=== PATIENT | female | born 1975 | race American Indian/Alaskan Native ===

== ENCOUNTER 2017-01-05 15:26 | Observation (INO) | payer MEDICAID ==
[2017-01-05 15:26] VITALS: BMI 26.9
[2017-01-05] MEDS ORDERED: Sodium Chloride 0.9% 1,000 ML IV ONE (15:54)
[2017-01-05 16:09] LABS: BASO # 0.1 K/uL (0.0-0.2); BASO % 1.4 % (0.0-2.0); EOS # 0.1 K/uL (0.0-0.7); EOS % 1.6 % (0.0-4.0); HEMATOCRIT 33.5 % (34.0-47.0); LYMPH # 1.3 K/uL (1.0-4.3); LYMPH % 22.8 % (20.0-40.0); MEAN CELL VOLUME 85.7 fL (81.0-99.0); MEAN CORPUSCULAR HEMOGLOBIN 28.4 pg (27.0-31.0); MEAN CORPUSCULAR HGB CONC 33.1 g/dL (33.0-37.0); MEAN PLATELET VOLUME 9.6 fL (7.2-11.7); MONO # 0.7 K/uL (0.0-0.8); MONO % 11.8 % (0.0-10.0); RED CELL DISTRIBUTION WIDTH 15.8 % (11.5-14.5); WHITE BLOOD COUNT 5.6 K/uL (4.8-10.8)
[2017-01-05 16:28] LABS: CHLORIDE 108 mmol/L (98-107); POTASSIUM 3.5 mmol/L (3.6-5.2); SODIUM 138 mmol/L (132-148)
[2017-01-05 16:30] LABS: GFR AFRICAN-AMERICAN > 60
[2017-01-05 16:31] LABS: ALB/GLOB RATIO 1.2 (1.0-2.1); ALKALINE PHOSPHATASE 45 U/L (38-126); ALT/SGPT 18 U/L (9-52); AST/SGOT 16 U/L (14-36); BILIRUBIN,TOTAL 1.1 mg/dL (0.2-1.3); BLOOD UREA NITROGEN 12 mg/dL (7-17); CALCIUM 8.8 mg/dl (8.6-10.4); CARBON DIOXIDE 22 mmol/L (22-30); GLUCOSE,RANDOM 84 mg/dL (65-105); TOTAL PROTEIN 6.8 g/dL (6.3-8.3)
[2017-01-05 16:47] LABS: RBC URINE 24 /hpf (0-3); URINE BACTERIA RARE (<OCC); URINE BILIRUBIN NEGATIVE (NEGATIVE); URINE BLOOD 3+ (NEGATIVE); URINE COLOR Straw (YELLOW); URINE GLUCOSE (UA) NORMAL (Normal); URINE KETONE TRACE mg/dL (NEGATIVE); URINE LEUKOCYTE ESTERASE 1+ Leu/uL (Negative); URINE PROTEIN NEGATIVE (NEGATIVE); URINE UROBILINOGEN NORMAL mg/dL (0.2-1.0); WBC URINE 30 /hpf (0-5)
--- NOTE | 2017-01-05 18:07 | CT ---
PROCEDURE: CT Abdomen and Pelvis without Oral or IV contrast. HISTORY: left flank pain COMPARISON: CT abdomen pelvis without oral or IV contrast performed 11/16/15 TECHNIQUE: Contiguous axial images of the abdomen and pelvis. No oral or IV contrast administered. Coronal and Sagittal reformats generated and reviewed. Radiation dose: Total exam DLP = 323.56 mGy-cm. This CT exam was performed using one or more of the following dose reduction techniques: Automated exposure control, adjustment of the mA and/or kV according to patient size, and/or use of iterative reconstruction technique. FINDINGS: There is limited evaluation of the solid organs without the administration of IV contrast. LOWER THORAX: Large cystic lesions re-identified within the anterior right lung base, likely reflecting large bulla. Minimal basilar atelectasis. No visible consolidation, pleural effusion, or pneumothorax. LIVER: Hepatomegaly. GALLBLADDER AND BILE DUCTS: Contracted gallbladder limits evaluation. Otherwise grossly unremarkable. PANCREAS: Unremarkable unenhanced appearance. SPLEEN: Unremarkable unenhanced appearance. ADRENALS: Unremarkable unenhanced appearance. KIDNEYS AND URETERS: Severe left-sided hydronephrosis. Left ureteral stent. No right-sided hydronephrosis or obstructing calculus identified. BLADDER: The urinary bladder appears unremarkable. REPRODUCTIVE: Uterus is present. Evidence of fundal fibroid. APPENDIX: Limited visualized portions of the presumed appendix appear within normal limits of caliber. No secondary signs of acute appendicitis. BOWEL: The stomach is nondistended. Lack of oral contrast limits evaluation for bowel pathology. The bowel loops appear within normal limits of caliber without evidence of intestinal obstruction. [id number]-[id number] constipation. PERITONEUM: No significant free fluid. No definite free air. LYMPH NODES: No bulky lymphadenopathy identified. VASCULATURE: No aortic aneurysm identified on this noncontrast study. BONES: 6 mm left sacral sclerotic focus, possibly bone island. No acute osseous abnormality is detected. OTHER FINDINGS: None. IMPRESSION: Severe left-sided hydronephrosis with ureteral stent present. Calculus is not evident. Probable uterine fundal fibroid. Hepatomegaly. Mild to moderate constipation. Additional incidental findings as above.
--- NOTE | 2017-01-05 18:13 | C.PDOC ---
History Of Present Illness A 41 y/o female c/o left flank pain for the past 2 days. Pt notes the pain is sharp in nature and is similar to the kidney stones she had in the past. Pt reports mild nausea and "dark" urine, but denies vomiting, fever, chills, dysuria, hematuria, incontinence, or any other complaints. Pt went to [facility] yesterday for similar complaint but did not receive a CAT scan. Pt reports her kidney stones in the past had to be surgically removed. Time Seen by Provider: 01/05/17 16:20 Chief Complaint (Nursing): Female Genitourinary History Per: Patient History/Exam Limitations: no limitations Onset/Duration Of Symptoms: Days Current Symptoms Are (Timing): Still Present Quality Of Discomfort: Sharp Severity: Mild Previous Symptoms: None Recent travel outside of the [place]: No Additional History Per: Patient Past Medical History Reviewed: Historical Data, Nursing Documentation, Vital Signs Vital Signs: Last Vital Signs Temp 98.4 F 01/06/17 08:18 Pulse 67 01/06/17 08:18 Resp 20 01/06/17 08:18 BP 117/68 01/06/17 08:18 Pulse Ox 100 01/06/17 08:18 Family History: States: Unknown Family Hx - Social History Hx Tobacco Use: No Hx Alcohol Use: Yes Hx Substance Use: No - Immunization History Hx Tetanus Toxoid Vaccination: No Hx Influenza Vaccination: No Hx Pneumococcal Vaccination: No Review Of Systems Except As Marked, All Systems Reviewed And Found Negative. Constitutional: Negative for: Fever, Chills Gastrointestinal: Positive for: Nausea. Negative for: Vomiting Genitourinary: Positive for: Other ("Dark urine". Left flank pain). Negative for: Dysuria, Incontinence, Hematuria Physical Exam - Physical Exam Appears: Non-toxic, No Acute Distress Skin: Warm, Dry Head: Atraumatic, Normacephalic Eye(s): bilateral: Normal Inspection Oral Mucosa: Moist Chest: Symmetrical Cardiovascular: Rhythm Regular, No Murmur Respiratory: Normal Breath Sounds, No Accessory Muscle Use, No Rales, No Rhonchi , No Wheezing Gastrointestinal/Abdominal: Soft, No Tenderness Back: CVA Tenderness (Left ), No Vertebral Tenderness, No Paraspinal Tenderness Neurological/Psych: Oriented x3, Normal Speech, Normal Cognition, Other (No focal deficit) Gait: Steady ED Course And Treatment - Laboratory Results Result Diagrams: 01/06/17 07:39 01/06/17 07:39 O2 Sat by Pulse Oximetry: 100 (RA) Pulse Ox Interpretation: Normal Medical Decision Making Medical Decision Making: Impression: A 41 y/o female c/o left flank pain for the past 2 days. Plans: Toradol IV fluids Urine culture Reassess Spoke to Dr. Mendez and pt will be admitted to his services. Spoke to Dr. Contreras who is material control manager for Urology, who is aware of the case. Disposition - Disposition Disposition: HOSPITALIZED Disposition Time: 18:20 Condition: STABLE - Clinical Impression Clinical Impression: Hydronephrosis - Scribe Statement The provider has reviewed the documentation as recorded by the Scribe Rosmery talbot All medical record entries made by the Scribe were at my direction and personally dictated by me. I have reviewed the chart and agree that the record accurately reflects my personal performance of the history, physical exam, medical decision making, and the department course for this patient. I have also personally directed, reviewed, and agree with the discharge instructions and disposition.
[2017-01-05] MEDS ORDERED: Ciprofloxacin 400mg/200ml D5W 400 MG/200 ML BAG IVPB STA (18:31)
[2017-01-05] MEDS ORDERED: Ciprofloxacin 400mg/200ml D5W 400 MG/200 ML BAG IVPB ONE (18:38)
[2017-01-05] MEDS: Sodium Chloride 0.9% 1,000 ML IV SCH ×2 (20:29)
[2017-01-05] MEDS ORDERED: Potassium Chloride 20 mEq ER Tab PO ONE (22:00)
--- NOTE | 2017-01-05 23:05 | CP.PCM.HP ---
History of Present Illness - History of Present Illness History of Present Illness: CC: left flank pain A 41 y/o AA female with h/o kidney stones and stent placement at [facility] [place] by a urologist 1 year ago since then she never followed up neither with urologist nor with ay medical doctor according to her she was doing well uptill now when she developed left flank pain for the past 2 days associated with nauea, vomitting, fevre, chills, anorexia, fatigue. Pt notes the pain is sharp in nature and is similar to the kidney stones she had in the past. Pt reports mild nausea and "dark" urine, but denies vomiting, fever, chills, dysuria, hematuria, incontinence, or any other complaints. Pt went to [facility] yesterday for similar complaint but did not receive a CAT scan. Pt reports her kidney stones in the past had to be surgically removed. Present on Admission - Present on Admission Any Indicators Present on Admission: Yes Review of Systems - Review of Systems Systems not reviewed;Unavailable: Acuity of Condition - Constitutional Constitutional: Fatigue, Lethargy, Weakness - EENT Eyes: absent: As Per HPI, Blind Spots, Blurred Vision, Change in Vision, Decreased Night Vision, Diplopia, Discharge, Dry Eye, Exophthalmos, Floaters, Irritation, Itchy Eyes, Loss of Peripheral Vision, Pain, Photophobia, Requires Corrective Lenses, Sees Flashes, Spots in Vision, Tunnel Vision, Other Visual Disturbances, Loss of Vision, Other Ears: absent: As Per HPI, Decreased Hearing, Ear Discharge, Ear Pain, Tinnitus, Abnormal Hearing, Disequilibrium, Dizziness, Other Nose/Mouth/Throat: absent: As Per HPI, Epistaxis, Nasal Congestion, Nasal Discharge, Nasal Obstruction, Nasal Trauma, Nose Pain, Post Nasal Drip, Sinus Pain, Sinus Pressure, Bleeding Gums, Change in Voice, Dental Pain, Dry Mouth, Dysphagia, Halitosis, Hoarsness, Lip Swelling, Mouth Lesions, Mouth Pain, Odynophagia, Sore Throat, Throat Swelling, Tongue Swelling, Facial Pain, Neck Pain, Neck Mass, Other - Cardiovascular Cardiovascular: absent: As Per HPI, Acrocyanosis, Chest Pain, Chest Pain at Rest , Chest Pain with Activity, Claudication, Diaphoresis, Dyspnea, Dyspnea on Exertion, Edema, Irregular Heart Rhythm, Pain Radiating to Arm/Neck/Jaw, Leg Edema, Leg Ulcers, Lightheadedness, Orthopnea, Palpitations, Paroxysmal Nocturnal Dyspnea, Pedal Edema, Radiating Pain, Rapid Heart Rate, Slow Heart Rate, Syncope, Other - Respiratory Respiratory: absent: As Per HPI, Cough, Dyspnea, Hemoptysis, Dyspnea on Exertion , Wheezing, Snoring, Stridor, Pain on Inspiration, Chest Congestion, Excessive Mucous Production, Change in Mucous Color, Pain with Coughing, Other - Gastrointestinal Gastrointestinal: Abdominal Pain - Genitourinary Genitourinary: Difficulty Urinating, Dysuria Past Patient History - Past Medical History & Family History Past Medical History?: No - Past Social History Smoking Status: Light Smoker < 10 Cigarettes Daily - CARDIAC Hx Cardiac Disorders: No - PULMONARY Hx Respiratory Disorders: No - NEUROLOGICAL Hx Neurological Disorder: No - HEENT Hx HEENT Problems: No - RENAL Other/Comment: "Blockage in L kidney" - ENDOCRINE/METABOLIC Hx Endocrine Disorders: No - HEMATOLOGICAL/ONCOLOGICAL Hx Blood Disorders: No - INTEGUMENTARY Hx Dermatological Problems: No - MUSCULOSKELETAL/RHEUMATOLOGICAL Hx Musculoskeletal Disorders: No Hx Falls: No - GASTROINTESTINAL Hx Gastrointestinal Disorders: No - GENITOURINARY/GYNECOLOGICAL Hx Genitourinary Disorders: No - PSYCHIATRIC Hx Psychophysiologic Disorder: No Hx Substance Use: No - SURGICAL HISTORY Other/Comment: L kidney stent 2016 - ANESTHESIA Hx Anesthesia: Yes Hx Anesthesia Reactions: No Meds Allergies/Adverse Reactions: Allergies Allergy/AdvReac Type Severity Reaction Status Date / Time No Known Allergies Allergy Verified 01/05/17 15:39 Physical Exam - Constitutional Appears: No Acute Distress - Eye Exam Eye Exam: EOMI, Normal appearance - Respiratory Exam Respiratory Exam: Clear to Auscultation Bilateral, NORMAL BREATHING PATTERN - Cardiovascular Exam Cardiovascular Exam: REGULAR RHYTHM - GI/Abdominal Exam GI & Abdominal Exam: Tenderness Additional comments: pt have left flank tenderness - Rectal Exam Rectal Exam: Deferred Results - Vital Signs Recent Vital Signs: Last Vital Signs Temp 98.2 F 01/05/17 20:10 Pulse 66 01/05/17 20:10 Resp 20 01/05/17 20:10 BP 127/76 01/05/17 20:10 Pulse Ox 99 01/05/17 20:10 - Labs Result Diagrams: 01/07/17 07:04 01/07/17 07:04 Assessment & Plan (1) Hydronephrosis Assessment and Plan: acute hydronephrosis dur to kidney stones Plans: Toradol IV fluids Urine culture Reassess possible ER tommorow Status: Acute (2) Musculoskeletal pain Status: Acute
[2017-01-06] MEDS: Sodium Chloride 0.9% 1,000 ML IV SCH ×3 (05:00→18:42)
[2017-01-06] MEDS: Ciprofloxacin 400mg/200ml D5W 400 MG/200 ML BAG IVPB SCH ×2 (06:10→18:42)
[2017-01-06 07:49] LABS: HEMATOCRIT 31.8 % (34.0-47.0); MEAN CELL VOLUME 85.1 fL (81.0-99.0); MEAN CORPUSCULAR HEMOGLOBIN 28.6 pg (27.0-31.0); MEAN CORPUSCULAR HGB CONC 33.6 g/dL (33.0-37.0); MEAN PLATELET VOLUME 9.8 fL (7.2-11.7); RED CELL DISTRIBUTION WIDTH 15.6 % (11.5-14.5); WHITE BLOOD COUNT 6.1 K/uL (4.8-10.8)
[2017-01-06 08:03] LABS: CHLORIDE 111 mmol/L (98-107); SODIUM 138 mmol/L (132-148)
[2017-01-06 08:06] LABS: BLOOD UREA NITROGEN 13 mg/dL (7-17); CALCIUM 8.5 mg/dl (8.6-10.4); CARBON DIOXIDE 21 mmol/L (22-30); GFR AFRICAN-AMERICAN > 60; GLUCOSE,RANDOM 91 mg/dL (65-105)
--- NOTE | 2017-01-06 23:14 | CP.PCM.PN ---
Subjective - Date & Time of Evaluation Date of Evaluation: 01/06/17 Time of Evaluation: 09:15 - Subjective Subjective: Pt seen and examined, still on pain managment waiting for urology consult Objective - Vital Signs/Intake and Output Vital Signs (last 24 hours): Temp Pulse Resp BP Pulse Ox 98.9 F 71 20 136/69 100 01/06/17 16:00 01/06/17 16:00 01/06/17 16:00 01/06/17 16:00 01/06/17 16:00 Intake and Output: 01/06/17 01/07/17 18:59 06:59 Intake Total 1100 1450 Balance 1100 1450 - Medications Medications: Current Medications Ciprofloxacin (Cipro 400mg/200ml Dsw) 400 mg in 200 mls @ 133 mls/hr IVPB Q12H YASH Last Admin: 01/06/17 18:42 Dose: 133 mls/hr Sodium Chloride (Sodium Chloride 0.9%) 1,000 mls @ 100 mls/hr IV .Q10H YASH Last Admin: 01/06/17 18:42 Dose: 100 mls/hr Ketorolac Tromethamine (Toradol) 30 mg IVP Q6 PRN PRN Reason: Pain, moderate (4-7) Last Admin: 01/06/17 08:54 Dose: 30 mg - Labs Labs: 01/06/17 07:39 01/06/17 07:39 - Constitutional Appears: No Acute Distress - Head Exam Head Exam: ATRAUMATIC, NORMAL INSPECTION, NORMOCEPHALIC - Eye Exam Eye Exam: EOMI, Normal appearance, PERRL Pupil Exam: NORMAL ACCOMODATION, PERRL - Respiratory Exam Respiratory Exam: Clear to Ausculation Bilateral, NORMAL BREATHING PATTERN - Cardiovascular Exam Cardiovascular Exam: REGULAR RHYTHM, +S1, +S2. absent: Murmur - GI/Abdominal Exam GI & Abdominal Exam: Tenderness, Normal Bowel Sounds - Rectal Exam Rectal Exam: Deferred - Neurological Exam Neurological Exam: Alert, Awake, CN II-XII Intact, Normal Gait, Oriented x3 - Psychiatric Exam Psychiatric exam: Anxious Assessment and Plan (1) Hydronephrosis Status: Acute (2) Musculoskeletal pain Status: Acute
[2017-01-07] MEDS: Sodium Chloride 0.9% 1,000 ML IV SCH (00:22)
[2017-01-07] MEDS: Ciprofloxacin 400mg/200ml D5W 400 MG/200 ML BAG IVPB SCH (06:17)
[2017-01-07 07:13] LABS: BASO # 0.1 K/uL (0.0-0.2); BASO % 1.1 % (0.0-2.0); EOS # 0.2 K/uL (0.0-0.7); EOS % 3.4 % (0.0-4.0); HEMATOCRIT 31.9 % (34.0-47.0); LYMPH # 1.3 K/uL (1.0-4.3); LYMPH % 23.3 % (20.0-40.0); MEAN CELL VOLUME 85.4 fL (81.0-99.0); MEAN CORPUSCULAR HEMOGLOBIN 28.7 pg (27.0-31.0); MEAN CORPUSCULAR HGB CONC 33.6 g/dL (33.0-37.0); MONO # 0.8 K/uL (0.0-0.8); MONO % 14.4 % (0.0-10.0); NRBC % 0.1 % (0.0-2.0); RED CELL DISTRIBUTION WIDTH 15.8 % (11.5-14.5); WHITE BLOOD COUNT 5.7 K/uL (4.8-10.8)
[2017-01-07 07:29] LABS: CHLORIDE 112 mmol/L (98-107); POTASSIUM 3.8 mmol/L (3.6-5.2); SODIUM 137 mmol/L (132-148)
[2017-01-07 07:32] LABS: BLOOD UREA NITROGEN 9 mg/dL (7-17); CARBON DIOXIDE 21 mmol/L (22-30); GFR AFRICAN-AMERICAN > 60
[2017-01-07 07:33] LABS: CALCIUM 8.4 mg/dl (8.6-10.4); GLUCOSE,RANDOM 92 mg/dL (65-105)
[2017-01-07 08:32] LABS: INR 1.1
[2017-01-07] MEDS ORDERED: Midazolam 2 MG/2 ML VIAL ONE (09:55)
[2017-01-07] MEDS ORDERED: Propofol 10 mg/ml Inj (20 ML) ONE ×2 (09:55→10:29)
[2017-01-07] MEDS ORDERED: Lactated Ringer's 1,000 ML IV ONE (10:00)
[2017-01-07] MEDS ORDERED: HYDROmorphone 0.5 mg/0.5 ml ISec IVP PRN (11:00)
[2017-01-07 11:13] VITALS: O2SAT 100
--- NOTE | 2017-01-07 12:03 | RAD ---
Abdomen single frontal view History: Left-sided hydroureteronephrosis. Comparison: CT scan dated 01/05/2017 Findings: Left nephroureteral stent in place. Rounded radiopaque calcification within the right hemipelvis. Degenerative changes in the spine. Moderate fecal retention in the colon. Impression: Left nephroureteral stent in place.
--- NOTE | 2017-01-07 12:07 | RAD ---
PROCEDURE: Intraoperative Fluoroscopy. HISTORY: Left hydronephrosis FINDINGS: Fluoroscopic assistance was provided for left nephroureteral stent manipulation. Please refer to the operative report from
[2017-01-07 12:25] VITALS: RESP 20
--- NOTE | 2017-01-07 16:52 | CP.PCM.PN ---
Subjective - Date & Time of Evaluation Date of Evaluation: 01/07/17 Objective - Vital Signs/Intake and Output Vital Signs (last 24 hours): Temp Pulse Resp BP Pulse Ox 99 F 72 20 122/59 L 100 01/07/17 12:00 01/07/17 12:00 01/07/17 12:00 01/07/17 12:00 01/07/17 12:00 Intake and Output: 01/07/17 01/07/17 06:59 18:59 Intake Total 2250 Output Total 150 Balance 2250 -150 - Medications Medications: Current Medications Ciprofloxacin (Cipro 400mg/200ml Dsw) 400 mg in 200 mls @ 133 mls/hr IVPB Q12H YASH Last Admin: 01/07/17 06:17 Dose: 133 mls/hr Sodium Chloride (Sodium Chloride 0.9%) 1,000 mls @ 100 mls/hr IV .Q10H YASH Last Admin: 01/07/17 00:22 Dose: Not Given Ketorolac Tromethamine (Toradol) 30 mg IVP Q6 PRN PRN Reason: Pain, moderate (4-7) Last Admin: 01/06/17 08:54 Dose: 30 mg - Labs Labs: 01/07/17 07:04 01/07/17 07:04 PT 12.5 SECONDS (9.7-12.2) H 01/07/17 08:04 INR 1.1 01/07/17 08:04 APTT 29 SECONDS (21-34) 01/07/17 08:04 Assessment and Plan (1) Hydronephrosis Status: Acute (2) Musculoskeletal pain Status: Acute
[2017-01-07 17:13] VITALS: BP 113/72; PULSE 61; TEMP 98.7
--- NOTE | 2017-01-07 17:45 | CP.PCM.PN ---
Subjective - Date & Time of Evaluation Date of Evaluation: 01/07/17 Time of Evaluation: 14:00 - Subjective Subjective: Pt seen an dexamined today states feel s better, flank an dabdominal pain improved , denies any N/V/D, dysuria , hematuria s/p cystocscopy with ureter stent left removal a febrile Objective - Vital Signs/Intake and Output Vital Signs (last 24 hours): Temp Pulse Resp BP Pulse Ox 98.7 F 61 20 113/72 100 01/07/17 16:00 01/07/17 16:00 01/07/17 16:00 01/07/17 16:00 01/07/17 16:00 Intake and Output: 01/07/17 01/07/17 06:59 18:59 Intake Total 2250 Output Total 150 Balance 2250 -150 - Medications Medications: Current Medications Ciprofloxacin (Cipro 400mg/200ml Dsw) 400 mg in 200 mls @ 133 mls/hr IVPB Q12H YASH Last Admin: 01/07/17 06:17 Dose: 133 mls/hr Sodium Chloride (Sodium Chloride 0.9%) 1,000 mls @ 100 mls/hr IV .Q10H YASH Last Admin: 01/07/17 00:22 Dose: Not Given Ketorolac Tromethamine (Toradol) 30 mg IVP Q6 PRN PRN Reason: Pain, moderate (4-7) Last Admin: 01/06/17 08:54 Dose: 30 mg - Labs Labs: 01/07/17 07:04 01/07/17 07:04 PT 12.5 SECONDS (9.7-12.2) H 01/07/17 08:04 INR 1.1 01/07/17 08:04 APTT 29 SECONDS (21-34) 01/07/17 08:04 Assessment and Plan - Assessment and Plan (Free Text) Assessment: A/P 41 YR old female admitted fo r hydronephrosi s s/p cystoscopy with removal of left ureter stent urine culture- yeast D/w Dr. Contreras , stable for discharge home otday and f/u with Dr. Contreras office in 1-2 weeks D/w Dr. Mendez, stable for discharge home today and continue cipr and diflucan and f/u with Dr. Mendez office in 1 week Discharge plan discussed with patient who under stands and agree with plan Pt instructed to returns to ED or call Dr. Mendez if symptoms returns or any concerning symptoms
--- NOTE | 2017-01-08 05:31 | CP.PCM.DIS ---
Provider - Provider Date of Admission: 01/05/17 18:30 Attending physician: Jostin Mendez MD Time Spent in preparation of Discharge (in minutes): 30 Diagnosis - Discharge Diagnosis (1) Hydronephrosis Status: Acute (2) Musculoskeletal pain Status: Acute Hospital Course - Lab Results Lab Results: Most Recent Lab Values WBC 5.7 K/uL (4.8-10.8) 01/07/17 07:04 RBC 3.74 Mil/uL (3.80-5.20) L 01/07/17 07:04 Hgb 10.7 g/dL (11.0-16.0) L 01/07/17 07:04 Hct 31.9 % (34.0-47.0) L 01/07/17 07:04 MCV 85.4 fL (81.0-99.0) 01/07/17 07:04 MCH 28.7 pg (27.0-31.0) 01/07/17 07:04 MCHC 33.6 g/dL (33.0-37.0) 01/07/17 07:04 RDW 15.8 % (11.5-14.5) H 01/07/17 07:04 Plt Count 210 K/uL (130-400) 01/07/17 07:04 MPV 10.0 fL (7.2-11.7) 01/07/17 07:04 Neut % (Auto) 57.8 % (50.0-75.0) 01/07/17 07:04 Lymph % (Auto) 23.3 % (20.0-40.0) 01/07/17 07:04 Dare % (Auto) 14.4 % (0.0-10.0) H 01/07/17 07:04 Eos % (Auto) 3.4 % (0.0-4.0) 01/07/17 07:04 Baso % (Auto) 1.1 % (0.0-2.0) 01/07/17 07:04 Neut # 3.3 K/uL (1.8-7.0) 01/07/17 07:04 Lymph # 1.3 K/uL (1.0-4.3) 01/07/17 07:04 Dare # 0.8 K/uL (0.0-0.8) 01/07/17 07:04 Eos # 0.2 K/uL (0.0-0.7) 01/07/17 07:04 Baso # 0.1 K/uL (0.0-0.2) 01/07/17 07:04 PT 12.5 SECONDS (9.7-12.2) H 01/07/17 08:04 INR 1.1 01/07/17 08:04 APTT 29 SECONDS (21-34) 01/07/17 08:04 Sodium 137 mmol/L (132-148) 01/07/17 07:04 Potassium 3.8 mmol/L (3.6-5.2) 01/07/17 07:04 Chloride 112 mmol/L (98-107) H 01/07/17 07:04 Carbon Dioxide 21 mmol/L (22-30) L 01/07/17 07:04 Anion Gap 8 (10-20) L 01/07/17 07:04 BUN 9 mg/dL (7-17) 01/07/17 07:04 Creatinine 0.7 MG/DL (0.7-1.2) 01/07/17 07:04 Est GFR ( Amer) > 60 01/07/17 07:04 Est GFR (Non-Af Amer) > 60 01/07/17 07:04 Random Glucose 92 mg/dL (65-105) 01/07/17 07:04 Calcium 8.4 mg/dl (8.6-10.4) L 01/07/17 07:04 Total Bilirubin 1.1 mg/dL (0.2-1.3) 01/05/17 16:04 AST 16 U/L (14-36) 01/05/17 16:04 ALT 18 U/L (9-52) 01/05/17 16:04 Alkaline Phosphatase 45 U/L (38-126) 01/05/17 16:04 Total Protein 6.8 g/dL (6.3-8.3) 01/05/17 16:04 Albumin 3.7 g/dL (3.5-5.0) 01/05/17 16:04 Globulin 3.1 gm/dL (2.2-3.9) 01/05/17 16:04 Albumin/Globulin Ratio 1.2 (1.0-2.1) 01/05/17 16:04 Lipase 202 U/L (23-300) 01/05/17 16:04 Urine Color Straw (YELLOW) 01/05/17 16:04 Urine Clarity Clear (Clear) 01/05/17 16:04 Urine pH 6.0 (5.0-8.0) 01/05/17 16:04 Ur Specific [place] 1.004 (1.003-1.030) 01/05/17 16:04 Urine Protein Negative mg/dL (NEGATIVE) 01/05/17 16:04 Urine Glucose (UA) Normal mg/dL (Normal) 01/05/17 16:04 Urine Ketones Trace mg/dL (NEGATIVE) 01/05/17 16:04 Urine Blood 3+ (NEGATIVE) H 01/05/17 16:04 Urine Nitrate Negative (NEGATIVE) 01/05/17 16:04 Urine Bilirubin Negative (NEGATIVE) 01/05/17 16:04 Urine Urobilinogen Normal mg/dL (0.2-1.0) 01/05/17 16:04 Ur Leukocyte Esterase 1+ Chris/uL (Negative) H 01/05/17 16:04 Urine WBC (Auto) 30 /hpf (0-5) H 01/05/17 16:04 Urine RBC (Auto) 24 /hpf (0-3) H 01/05/17 16:04 Ur Squamous Epith Cells 6 /hpf (0-5) H 01/05/17 16:04 Urine Bacteria Rare (<OCC) 01/05/17 16:04 Urine HCG, Qual Negative (NEGATIVE) 01/07/17 08:07 - Hospital Course Hospital Course: Pt seen an dexamined today states feel s better, flank an dabdominal pain improved , denies any N/V/D, dysuria , hematuria s/p cystocscopy with ureter stent left removal a febrile Discharge Exam - Head Exam Head Exam: ATRAUMATIC, NORMAL INSPECTION, NORMOCEPHALIC - Eye Exam Eye Exam: EOMI, Normal appearance, PERRL Pupil Exam: NORMAL ACCOMODATION, PERRL - Respiratory Exam Respiratory Exam: Clear to PA & Lateral, NORMAL BREATHING PATTERN - Cardiovascular Exam Cardiovascular Exam: REGULAR RHYTHM, +S1, +S2 - GI/Abdominal Exam GI & Abdominal Exam: Normal Bowel Sounds Discharge Plan - Discharge Medications Prescriptions: Ciprofloxacin HCl [Cipro] 500 mg PO BID #14 tablet Fluconazole [Diflucan] 100 mg PO DAILY #5 tab - Follow Up Plan Condition: STABLE Disposition: HOME/ ROUTINE Instructions: Ciprofloxacin (By mouth), Fluconazole (By mouth), Hydronephrosis (DC) Additional Instructions: f/u with Dr. mendez office in 1 week F/u with Dr. Vaughn office in 1-2 weeks - call for appointment Continue medication as per Med. rec. Referrals: Jostin Mendez MD [Staff Provider] - Dhiraj Vaughn MD [Staff Provider] -
--- NOTE | 2017-01-08 14:35 | OP ---
PROCEDURE DATE: 01/07/2017 PREOPERATIVE DIAGNOSIS: The patient had stent inserted 1 year ago. ____ at this time is unknown. H owever, the stent ____. The patient was admitted for the stent removal. DETAILS OF PROCEDURE: The patient was brought to the OR, prepped and draped in the usual manner. A #21 cystourethroscope was inserted into the bladder. There was a lot of encrustation of the loop of the distal coil of the stent. Using foreign body forceps, the encrustation was removed. Attempted r emoving the stent then failed because of encrustation of the proximal coil of the stent in the left p remi. A ureteroscope was then inserted a long side the stent into the pelvis and the areas of encru station on the loop were noted and lasered. When this was accomplished, the stent was then easily re moved. The patient tolerated procedure well, left in good condition. Fahad Contreras MD cc: [id number] TT: 01/08/2017 14:34:13 tn
== END 2017-01-07 18:20 | disposition home or self-care (01) ==
LOC: C.ER 15:26 → C.9E 18:30 → C.3T 18:47
PROVIDERS: ADMIT Internal Medicine; ATTEND Internal Medicine
DX: N13.2 Hydronephrosis with renal and ureteral calculous obstruction (principal); Z87.442 Personal history of urinary calculi
CPT/HCPCS: 36415; 52310; 74000; 74176; 76000; 80048; 80053; 81001; 83690; 84703; 85025; 85027; 85610; 85730; 87086; 96374; 99285; G0378; J0744; J1885; J7040; J7120

== ENCOUNTER 2017-03-01 07:55 | Day surgery (SDC) | payer MEDICAID ==
[2017-02-24 09:03] VITALS: BMI 24.9
[2017-03-01] MEDS ORDERED: Ciprofloxacin 400mg/200ml D5W 400 MG/200 ML BAG IVPB ONE (08:37)
[2017-03-01] MEDS ORDERED: Propofol 10 mg/ml Inj (20 ML) ONE (08:51)
[2017-03-01] MEDS ORDERED: Midazolam 2 MG/2 ML VIAL ONE (08:51)
[2017-03-01] MEDS ORDERED: Lactated Ringer's 1,000 ML IV ONE (08:51)
[2017-03-01] MEDS: Gentamicin 160 MG in Sodium Chloride 0.9% 100 ML IVPB ONE ×2 (08:54→09:05)
--- NOTE | 2017-03-01 09:19 | PCM.SURG1 ---
Surgeon's Initial Post Op Note - Surgeon's Notes Surgeon: [employer] Salesperson: BLAINE Type of Anesthesia: General Mask Anesthesia Administered By: staff Pre-Operative Diagnosis: Left upj obs Operative Findings: NO evidence of sig obs/or stent Post-Operative Diagnosis: some Operation Performed: Cysto bilat retrograde Specimen/Specimens Removed: na Estimated Blood Loss: EBL {In ML}: 0 Blood Products Given: N/A Drains Used: No Drains, Chest Tubes Post-Op Condition: Good Date of Surgery/Procedure: 03/01/17 Time of Surgery/Procedure: 09:18
[2017-03-01] MEDS ORDERED: Lidocaine 2% Jelly (Uro-Jet) ONE (09:40)
[2017-03-01 09:44] VITALS: O2SAT 100
[2017-03-01 10:39] VITALS: RESP 16
[2017-03-01 11:00] VITALS: BP 113/85; PULSE 59; TEMP 97.5
--- NOTE | 2017-03-01 16:56 | RAD ---
PROCEDURE: Intraoperative Fluoroscopy. HISTORY: UNSPECIFIED BILAT. HYDRONEPHROSIS FINDINGS: Fluoroscopic assistance was provided for bilateral retrograde. Please fluoroscopic time (continuous mode) utilized during the procedure: 36.9 seconds.
--- NOTE | 2017-03-01 19:46 | OP ---
PROCEDURE DATE: 03/01/2017 PREOPERATIVE DIAGNOSES: Left ureteropelvic junction obstruction, status post dismembered pyeloplasty, possible retained stent. POSTOPERATIVE DIAGNOSIS: No evidence of retained stent and no evidence of significant hydronephrosis. PROCEDURE: Cystoscopy and bilateral retrograde. DESCRIPTION OF THE PROCEDURE: As follows, prior to the procedure, a detailed informed consent was obtained from the patient. She is aware of the risks and complications of this procedure. She was given prophylactic antibiotics, gentamicin and Cipro after it was confirmed that she had had a tubal ligation. She was draped and prepped in the usual manner. KUB was taken which showed no evidence of stent. The patient was cystoscoped with #21 ____ scope and double bilateral retrograde pyelograms were performed. There was evidence of still a rather box pelvis, but it seemed to drain on the left, but it seemed to drain properly. The right kidney appeared normal. Based on these findings, it appears that the patient has improved hydronephrosis since dismembered pyeloplasty. We suggest observation with repeat studies in approximately 6 months to determine if there is renal deterioration. Shon Cassidy MD
--- NOTE | 2017-03-02 17:23 | RAD ---
HISTORY: UNSPECIFIED BILAT HYDRONEPHROSIS COMPARISON: No prior. FINDINGS: BOWEL: Constipation without fecal impaction or obstruction. BONES: Normal. OTHER FINDINGS: Distended collecting systems bilaterally left greater than right. Contrast fills the urinary bladder. Removal of support apparatus since the prior study: Left double-J stent catheter. IMPRESSION: Distended collecting systems bilaterally. Nonvisualization of portions of the proximal ureter.
== END 2017-03-01 10:57 | disposition home or self-care (01) ==
LOC: C.SDS 07:55
PROVIDERS: ATTEND Urology
DX: N13.1 Hydronephrosis with ureteral stricture, not elsewhere classified (principal)
CPT/HCPCS: 52000; 74022; 76000; J0744; J1580; J7120

== ENCOUNTER 2017-03-15 15:27 | Emergency (ER) | payer MEDICAID ==
[2017-03-15 15:28] VITALS: BMI 24.9
[2017-03-15 15:37] VITALS: RESP 18; O2SAT 100
[2017-03-15 15:56] LABS: URINE BILIRUBIN NEGATIVE (NEGATIVE); URINE BLOOD NEGATIVE (NEGATIVE); URINE COLOR Straw (YELLOW); URINE GLUCOSE (UA) NORMAL (Normal); URINE KETONE NEGATIVE (NEGATIVE); URINE LEUKOCYTE ESTERASE NEG Leu/uL (Negative); URINE PROTEIN NEGATIVE (NEGATIVE); URINE UROBILINOGEN NORMAL mg/dL (0.2-1.0); WBC URINE < 1 /hpf (0-5)
[2017-03-15 16:32] LABS: BASO # 0.1 K/uL (0.0-0.2); EOS # 0.1 K/uL (0.0-0.7); EOS % 1.7 % (0.0-4.0); HEMATOCRIT 35.1 % (34.0-47.0); LYMPH # 1.9 K/uL (1.0-4.3); LYMPH % 23.6 % (20.0-40.0); MEAN CELL VOLUME 85.5 fL (81.0-99.0); MEAN CORPUSCULAR HEMOGLOBIN 28.7 pg (27.0-31.0); MEAN CORPUSCULAR HGB CONC 33.6 g/dL (33.0-37.0); MEAN PLATELET VOLUME 9.2 fL (7.2-11.7); MONO # 0.5 K/uL (0.0-0.8); MONO % 6.8 % (0.0-10.0); RED CELL DISTRIBUTION WIDTH 16.5 % (11.5-14.5); WHITE BLOOD COUNT 7.9 K/uL (4.8-10.8)
--- NOTE | 2017-03-15 16:45 | C.PDOC ---
History Of Present Illness 41 y/o female presents to ED for evaluation of tingling sensation to posterior aspect of left shoulder, and upper back for the past week. Also complains of "muscle tightness" to left thigh, arms, and tightness across her abdomen. Otherwise, denies any recent heavy exercise, fever, chills, abdominal pain, n/v/ d, urinary symptoms, or any other associated symptoms at this time. Time Seen by Provider: 03/15/17 15:56 Chief Complaint (Nursing): Pain, Chronic History Per: Patient History/Exam Limitations: no limitations Onset/Duration Of Symptoms: Days (1 week) Current Symptoms Are (Timing): Still Present Recent travel outside of the [place]: No Additional History Per: Patient Past Medical History Reviewed: Historical Data, Nursing Documentation, Vital Signs Vital Signs: Last Vital Signs Temp 98.0 F 03/15/17 15:33 Pulse 66 03/15/17 15:33 Resp 18 03/15/17 15:33 BP 118/72 03/15/17 15:33 Pulse Ox 100 03/15/17 17:13 - Medical History PMH: Kidney Stones Family History: States: Unknown Family Hx - Social History Hx Tobacco Use: No Hx Alcohol Use: Yes - Immunization History Hx Tetanus Toxoid Vaccination: No Hx Influenza Vaccination: No Hx Pneumococcal Vaccination: No Review Of Systems Constitutional: Negative for: Fever, Chills Cardiovascular: Negative for: Chest Pain, Palpitations Respiratory: Negative for: Shortness of Breath Gastrointestinal: Negative for: Nausea, Vomiting, Abdominal Pain Genitourinary: Negative for: Dysuria, Frequency, Hematuria Musculoskeletal: Positive for: Other ("muscle tightness" to arms, left thigh, and across abdomen). Negative for: Neck Pain, Shoulder Pain Neurological: Positive for: Other (tingling sensation to left shoulder and upper back). Negative for: Weakness, Numbness, Headache, Dizziness Physical Exam - Physical Exam Appears: Well, Non-toxic, No Acute Distress Skin: Normal Color, Warm, Dry, No Rash Head: Atraumatic, Normacephalic Eye(s): bilateral: Normal Inspection Oral Mucosa: Moist Neck: Normal ROM, No Midline Cervical Tenderness, No Paracervical Tenderness ( no trapezius muscle tenderness), Supple Cardiovascular: Rhythm Regular, No Murmur Respiratory: Normal Breath Sounds, No Rales, No Rhonchi, No Wheezing Gastrointestinal/Abdominal: Normal Exam, Bowel Sounds, Soft, No Tenderness, No Guarding, No Rebound Back: Normal Inspection, No Vertebral Tenderness, No Decreased ROM, No Muscle Spasm, No Paraspinal Tenderness Extremity: Normal ROM, No Tenderness (no tenderness to bilateral legs or thighs. No tenderness to shoulders or arms. ), Capillary Refill (<2 sec.), No Deformity, No Swelling Extremity: Bilateral: Atraumatic, Normal Color And Temperature, Normal ROM Pulses: Left Femoral: Normal, Right Femoral: Normal Neurological/Psych: Oriented x3, Normal Speech, Normal Cognition, Normal Motor, Normal Sensation ED Course And Treatment - Laboratory Results Result Diagrams: 03/15/17 16:30 03/15/17 16:30 O2 Sat by Pulse Oximetry: 100 Medical Decision Making Medical Decision Making: Plan: Blood work, UA, urine culture Patient was given Toradol. Symptoms likely early flu myalgia vs rhabdomyolysis? urine clear and light color, unlikely. 530 pm pt reprts feeloing better, will d/c with flexeril and pt can follow up tomorrow with Dr Mendez as planned. Disposition Counseled Patient/Family Regarding: Diagnosis, Need For Followup, Rx Given - Disposition Referrals: Jostin Mendez MD [Staff Provider] - Disposition: HOME/ ROUTINE Disposition Time: 17:35 Condition: IMPROVED Additional Instructions: Take muscle relaxant if your muscles feel stiff- makes you feel a bit sleepy, so no driving or operating machinery. Follow up with Dr Mendez tomorrow as scheduled. Return to ER for any worsening symptoms. . Prescriptions: Cyclobenzaprine [Cyclobenzaprine HCl] 10 mg PO Q8 #9 tab Ibuprofen [Motrin] 600 mg PO TID #30 tab Instructions: Musculoskeletal Pain (ED) Forms: [facility] (Iraqi), General Discharge Instructions - Clinical Impression Clinical Impression: Musculoskeletal pain - PA / [employer] / Resident Statement MD/DO has reviewed & agrees with the documentation as recorded. - Scribe Statement The provider has reviewed the documentation as recorded by the Ayse Brown All medical record entries made by the Lizettibalexa were at my direction and personally dictated by me. I have reviewed the chart and agree that the record accurately reflects my personal performance of the history, physical exam, medical decision making, and the department course for this patient. I have also personally directed, reviewed, and agree with the discharge instructions and disposition.
[2017-03-15 16:49] LABS: CHLORIDE 103 mmol/L (98-107); POTASSIUM 3.7 mmol/L (3.6-5.2); SODIUM 139 mmol/L (132-148)
[2017-03-15 16:51] LABS: BILIRUBIN,TOTAL 0.6 mg/dL (0.2-1.3); GFR AFRICAN-AMERICAN > 60
[2017-03-15 16:52] LABS: ALB/GLOB RATIO 1.2 (1.0-2.1); ALKALINE PHOSPHATASE 60 U/L (38-126); ALT/SGPT 38 U/L (9-52); AST/SGOT 23 U/L (14-36); BLOOD UREA NITROGEN 13 mg/dL (7-17); CALCIUM 9.1 mg/dl (8.6-10.4); CARBON DIOXIDE 23 mmol/L (22-30); GLUCOSE,RANDOM 77 mg/dL (65-105); TOTAL PROTEIN 7.1 g/dL (6.3-8.3)
[2017-03-15 17:49] VITALS: BP 121/79; PULSE 65; TEMP 98.5
== END 2017-03-15 17:55 | disposition home or self-care (01) ==
LOC: C.ER 15:27
DX: M79.1 Myalgia (principal)
CPT/HCPCS: 80053; 81001; 82550; 84703; 85025; 87086; 96374; 99285; J1885

== ENCOUNTER 2018-04-27 20:09 | Emergency (ER) | payer MEDICAID ==
[2018-04-27 20:09] VITALS: BMI 24.9
[2018-04-27 21:27] LABS: BASO # 0.1 K/uL (0.0-0.2); BASO % 1.3 % (0.0-2.0); EOS # 0.3 K/uL (0.0-0.7); EOS % 3.8 % (0.0-4.0); HEMOGLOBIN 11.7 g/dL (11.0-16.0); LYMPH # 1.6 K/uL (1.0-4.3); LYMPH % 22.9 % (20.0-40.0); MEAN CORPUSCULAR HEMOGLOBIN 30.1 pg (27.0-31.0); MEAN CORPUSCULAR HGB CONC 34.6 g/dL (33.0-37.0); MEAN PLATELET VOLUME 9.4 fL (7.2-11.7); MONO # 0.7 K/uL (0.0-0.8); MONO % 10.5 % (0.0-10.0); NEUT # 4.3 K/uL (1.8-7.0); NEUT % 61.5 % (50.0-75.0); NRBC % 0.2 % (0.0-2.0); RBC 3.9 Mil/uL (3.80-5.20); RED CELL DISTRIBUTION WIDTH 14.2 % (11.5-14.5)
--- NOTE | 2018-04-27 21:41 | C.PDOC ---
History Of Present Illness 42-year-old female, with history of tobacco abuse, presents to the ED for evaluation of chest pain. Patient states she was drinking wine earlier today when she developed tightness to her mid-chest region. She states symptoms are worse with palpation of the area and with movement. She also reports having a nonproductive cough earlier today. Patient denies fever, chills, shortness of breath, back pain (contrary to triage), or abdominal pain. Time Seen by Provider: 04/27/18 20:54 Chief Complaint (Nursing): Chest Pain History Per: Patient History/Exam Limitations: no limitations Onset/Duration Of Symptoms: Hrs Current Symptoms Are (Timing): Still Present Quality: Tightness, "Pain" Exacerbating Factors: Movement, Other (palpation ) Additional History Per: Patient Past Medical History Reviewed: Historical Data, Nursing Documentation, Vital Signs Vital Signs: Last Vital Signs Temp 98.9 F 04/27/18 20:39 Pulse 80 04/27/18 20:39 Resp 20 04/27/18 20:39 BP 137/86 04/27/18 20:39 Pulse Ox 100 04/27/18 20:39 - Medical History PMH: Kidney Stones Surgical History: No Surg Hx Family History: States: Unknown Family Hx - Social History Hx Tobacco Use: No Hx Alcohol Use: Yes Hx Substance Use: Yes - Immunization History Hx Tetanus Toxoid Vaccination: No Hx Influenza Vaccination: No Hx Pneumococcal Vaccination: No Review Of Systems Constitutional: Negative for: Fever, Chills Cardiovascular: Positive for: Chest Pain, Other (tightness to mid-chest ) Respiratory: Negative for: Shortness of Breath Gastrointestinal: Negative for: Abdominal Pain Musculoskeletal: Negative for: Back Pain Physical Exam - Physical Exam Appears: Non-toxic, No Acute Distress Skin: Normal Color, Warm, Dry Head: Atraumatic, Normacephalic Eye(s): bilateral: Normal Inspection Oral Mucosa: Moist Neck: Supple Chest: Symmetrical, No Deformity, Tenderness (to mid-sternal region on palpation ) Cardiovascular: Rhythm Regular, No Murmur Respiratory: Normal Breath Sounds, No Rales, No Rhonchi, No Wheezing Extremity: Normal ROM, Capillary Refill (less than 2 seconds ) Neurological/Psych: Oriented x3, Normal Speech, Normal Cognition ED Course And Treatment - Laboratory Results Result Diagrams: 04/27/18 21:16 04/27/18 21:16 O2 Sat by Pulse Oximetry: 100 (on RA) Pulse Ox Interpretation: Normal Medical Decision Making Medical Decision Making: Progress: Bloodwork, EKG, CXR ordered and reviewed. Toradol IVP given. 10:23PM EKG shows NSR at 66bpm with LVH. Trop x 1 negative. Heart score 3 (not suspicious, and only risk factor is tobacco use). Spoke to PMD Dr. Mendez who reports that patent can follow-up in his offiuce tomrorow. She reports chest pain is resolved. Disposition - Disposition Disposition: HOME/ ROUTINE Disposition Time: 22:24 Condition: GOOD Additional Instructions: Follow-up with Dr. Mendez tomorrow. Return to ED if condition worsens. Instructions: Chest Pain Forms: [facility] (Malay), Work Excuse - Clinical Impression Clinical Impression: Chest pain
[2018-04-27 21:42] LABS: ALB/GLOB RATIO 1.4 (1.0-2.1); ALBUMIN 3.6 g/dL (3.5-5.0); ALT/SGPT 16 U/L (9-52); AST/SGOT 12 U/L (14-36); BLOOD UREA NITROGEN 13 mg/dL (7-17); CALCIUM 9.4 mg/dl (8.6-10.4); GFR NON-AFRICAN AMERICAN > 60
[2018-04-27 22:25] VITALS: BP 125/76; PULSE 67; RESP 16; TEMP 98.2; O2SAT 99
--- NOTE | 2018-04-28 08:36 | RAD ---
HISTORY: Cough and chest pain COMPARISON: 06/11/2013. TECHNIQUE: Chest PA and lateral FINDINGS: LINES AND TUBES: None. LUNG AND PLEURA: The lungs are well inflated and clear. There is linear scarring in the right middle lobe. No pleural effusion or pneumothorax. HEART AND MEDIASTINUM: The heart is not enlarged. The hilar and mediastinal contours are within normal limits. SKELETAL STRUCTURES: The bony structures are within normal limits for the patient's age. VISUALIZED UPPER ABDOMEN: Normal. OTHER FINDINGS: None. IMPRESSION: No active pulmonary disease.
--- NOTE | 2018-04-28 15:18 | CARD ---
APPROVED REPORT Date of service: 04/27/2018 EKG Measurement Heart [id number] <Conclusion> Normal sinus rhythm Minimal voltage criteria for LVH, may be normal variant Borderline ECG
== END 2018-04-27 22:35 | disposition home or self-care (01) ==
LOC: C.ER 20:09
DX: R07.9 Chest pain, unspecified (principal)
CPT/HCPCS: 71046; 80053; 82550; 83735; 84100; 84484; 85025; 93005; 96374; 99285; J1885

== ENCOUNTER 2018-10-26 11:31 | Emergency (ER) | payer MEDICAID ==
[2018-10-26 11:31] VITALS: BMI 24.9
[2018-10-26 11:36] VITALS: BP 123/79; PULSE 72; RESP 18; TEMP 97.9; O2SAT 97
[2018-10-26] MEDS ORDERED: Naproxen 550 mg Tab PO STA (12:14)
[2018-10-26] MEDS ORDERED: Naproxen 550 mg Tab PO ONE (12:29)
--- NOTE | 2018-10-26 13:10 | C.PDOC ---
History Of Present Illness 43 y/o female presents to the ER complaining of left knee pain which has been present for the past 2 days. Patient states that the pain began after she was dancing. Patient reports that she cannot fully bend the knee due to the pain. Denies having direct trauma, weakness,numbness, calf pain, rash ,fever, and chills. Time Seen by Provider: 10/26/18 11:43 Chief Complaint (Nursing): Lower Extremity Problem/Injury History Per: Patient History/Exam Limitations: no limitations Onset/Duration Of Symptoms: Days Current Symptoms Are (Timing): Still Present Severity: Moderate Past Medical History Reviewed: Historical Data, Nursing Documentation, Vital Signs Vital Signs: Last Vital Signs Temp 97.9 F 10/26/18 11:33 Pulse 72 10/26/18 11:33 Resp 18 10/26/18 11:33 BP 123/79 10/26/18 11:33 Pulse Ox 97 10/26/18 11:33 - Medical History PMH: Kidney Stones Other Surgeries: Hx of surgeries Family History: States: No Known Family Hx - Social History Hx Tobacco Use: No Hx Alcohol Use: Yes Hx Substance Use: Yes - Immunization History Hx Tetanus Toxoid Vaccination: No Hx Influenza Vaccination: No Hx Pneumococcal Vaccination: No Review Of Systems Except As Marked, All Systems Reviewed And Found Negative. Constitutional: Negative for: Fever, Chills Musculoskeletal: Positive for: Other (left knee pain) Skin: Negative for: Rash Neurological: Negative for: Weakness, Numbness Physical Exam - Physical Exam Appears: Non-toxic, No Acute Distress, Other (comfortable) Skin: Normal Color, Warm, Dry, Other (no erythema to left knee) Head: Atraumatic, Normacephalic Eye(s): bilateral: Normal Inspection Nose: Normal Oral Mucosa: Moist Neck: Supple Chest: Symmetrical Extremity: Normal ROM, Tenderness (tenderness to palpation over left knee), No Calf Tenderness, No Swelling Pulses: Left Dorsalis Pedis: Normal Neurological/Psych: Oriented x3, Normal Speech, Normal Motor, Normal Sensation ED Course And Treatment O2 Sat by Pulse Oximetry: 97 (RA) Pulse Ox Interpretation: Normal - Other Rad X-Ray-Left Knee X-Ray: Viewed By Me, Read By Radiologist Interpretation: Date of service: 10/26/2018. PROCEDURE: Left Knee Radiographs. HISTORY: Pain. COMPARISON: None. TECHNIQUE: 3 views obtained. FINDINGS: BONES: Bone alignment and mineralization are normal. There is no acute displaced fracture or bone destruction. JOINTS: Normal. No osteoarthritis. JOINT EFFUSION: There is a small suprapatellar joint effusion. OTHER FINDINGS: None. IMPRESSION: No acute fracture or dislocation. Small suprapatellar joint effusion. Progress Note: X-Ray- Left Knee ordered and reviewed. Patient treated with Naproxen PO.Knee Brace has been applied by molding technician. Patient has been discharged and instructed to follow up with orthopedist in 1 week. Disposition Counseled Patient/Family Regarding: Studies Performed, Diagnosis, Need For Followup, Rx Given - Disposition Referrals: Sachin Mendes MD [Staff Provider] - Disposition: HOME/ ROUTINE Disposition Time: 13:10 Condition: STABLE Additional Instructions: FOLLOW UP WITH ORTHOPEDICS WITHIN 1 WEEK USE PAIN MEDICATION NEEDED RETURN TO ER IF SYMPTOMS WORSEN Prescriptions: Naproxen [Naprosyn] 1 tab PO BID PRN #25 tab PRN Reason: Pain Instructions: Knee Sprain (DC), Ligament Injuries in the Knee (DC) Forms: [employer] (Arabic) Print Language: CUBAN - POA Present On Arrival: None - Clinical Impression Clinical Impression: Soft tissue injury of left knee - Scribe Statement The provider has reviewed the documentation as recorded by the Ayse Thrasher Provider Attestation: All medical record entries made by the Ayse were at my direction and personally dictated by me. I have reviewed the chart and agree that the record accurately reflects my personal performance of the history, physical exam, medical decision making, and the department course for this patient. I have also personally directed, reviewed, and agree with the discharge instructions and disposition.
--- NOTE | 2018-10-26 14:29 | RAD ---
Date of service: 10/26/2018 PROCEDURE: Left Knee Radiographs. HISTORY: Pain. COMPARISON: None. TECHNIQUE: 3 views obtained. FINDINGS: BONES: Bone alignment and mineralization are normal. There is no acute displaced fracture or bone destruction. JOINTS: Normal. No osteoarthritis. JOINT EFFUSION: There is a small suprapatellar joint effusion. OTHER FINDINGS: None. IMPRESSION: No acute fracture or dislocation. Small suprapatellar joint effusion.
== END 2018-10-26 13:34 | disposition home or self-care (01) ==
LOC: C.ER 11:31
DX: S89.92XA Unspecified injury of left lower leg, initial encounter (principal); Y93.41 Activity, dancing